=== PATIENT | female | born 1960 | race African-American/Black ===

== ENCOUNTER 2021-01-08 08:50 | Emergency (ER) | payer OTHER, MEDICAID ==
[~2021-01-08] VITALS: Ht 167.6 cm; Wt 109.0 kg
[~2021-01-08 08:50] MED LIST: METF-414
[2021-01-08] MEDS ORDERED: ONDANSETRON HCL 4MG/2ML INJ IV STA (09:01)
[2021-01-08] MEDS ORDERED: MORPHINE SULFATE 4 MG/ML CPJ (NOT FOR IM USE) IV STA (09:01)
[2021-01-08 09:17] VITALS: BP 134/62
== END 2021-01-08 09:44 | disposition home or self-care (01) ==
LOC: ER 08:50
DX: R55 Syncope and collapse (principal); S80.212A Abrasion, left knee, initial encounter; S80.211A Abrasion, right knee, initial encounter; E11.9 Type 2 diabetes mellitus without complications; I10 Essential (primary) hypertension; Z79.84 Long term (current) use of oral hypoglycemic drugs; W01.0XXA Fall on same level from slipping, tripping and stumbling without subsequent striking against object, initial encounter; Y93.89 Activity, other specified; Y92.488 Other paved roadways as the place of occurrence of the external cause
CPT/HCPCS: 93005; 99283